=== PATIENT | male | born 1950 | race Native Hawaiian/Other Pacific Islander ===

== ENCOUNTER 2017-02-19 17:20 | Observation (INO) | payer MEDICAID ==
[~2017-02-19] VITALS: Ht 177.8 cm; Wt 83.0 kg
[2017-02-19 17:20] VITALS: BP 123/73; PULSE 92; RESP 20; TEMP 98.1; O2SAT 98
--- NOTE | 2017-02-19 17:57 | PD ---
HPI Chief Complaint: Altered Mental Status Time Seen by Provider: 17:56 Travel History International Travel<30 days: No Contact w/Intl Traveler<30days: No Traveled to known affect area: No History of Present Illness HPI 66-year-old male came to the emergency room with history of confusion since he woke up this morning at 8:30 AM. Patient and his just came from [place] 2 weeks ago. He does not speak a word of [place]. His relatives are here who are doing some translation and giving history. Patient appears to be confused. I've been told by the family members that he's having hard time recognizing people and place. He also said that he was dizzy. His vital signs are stable. Patient has not complained of any pain. The family members were here with him do not know much about his medical history. He does take high blood pressure medication. He did not have any syncopal episode today. He has been able to ambulate okay. [facility] Past Medical History Narrative Medical List of his past medical, surgical, social and family history is reviewed from the nursing note. Social History Tobacco Use: No Allergies-Medications (Allergen,Severity, Reaction): Coded Allergies: No Known Allergies (Unverified , 02/19/17) Comments No known drug allergies. Reported Meds & Prescriptions Reported Meds & Active Scripts Active Narrative Medication Awaiting for the nurse to do the medical reconciliation. Review of Systems ROS Limitations: Altered Mental Status, Poor Historian Except as stated in HPI: all other systems reviewed are Neg Neurologic: Positive: Dizziness Physical Exam Narrative GENERAL: Awake but confused, extremely poor communication due to language barrier but also sparsely verbal SKIN: Focused skin assessment warm/dry. HEAD: Atraumatic. Normocephalic. EYES: Pupils equal and round. No scleral icterus. No injection or drainage. ENT: No nasal bleeding or discharge. Mucous membranes pink and moist. NECK: Trachea midline. No JVD. CARDIOVASCULAR: Regular rate and rhythm. No murmur appreciated. RESPIRATORY: No accessory muscle use. Clear to auscultation. Breath sounds equal bilaterally. GASTROINTESTINAL: Abdomen soft, non-tender, nondistended. Hepatic and splenic margins not palpable. MUSCULOSKELETAL: No obvious deformities. No clubbing. No cyanosis. No edema. NEUROLOGICAL: Awake but confused. No obvious cranial nerve deficits. Motor grossly within normal limits. Unable to comprehend speech due to language barrier PSYCHIATRIC: Appropriate mood and affect; insight and judgment normal. Data Data Last Documented VS Orders Orders Electrocardiogram (02/19/17 17:37) Ammonia (02/19/17 17:37) Complete Blood Count With Diff (02/19/17 17:37) Comprehensive Metabolic Panel (02/19/17 17:37) Prothrombin Time / Inr (Pt) (02/19/17 17:37) Act Partial Throm Time (Ptt) (02/19/17 17:37) Thyroid Stimulating Hormone (02/19/17 17:37) Urinalysis - C+S If Indicated (02/19/17 17:37) Chest, Pa & Lat (02/19/17 17:37) Ct Brain W/O Iv Contrast(Rout) (02/19/17 17:37) Consult Neurology (02/19/17 ) Sodium Chlor 0.9% 1000 Ml Inj (Ns 1000 M (02/19/17 20:45) Head Of Bed (02/19/17 20:38) Mra Brain W/O Contrast (Cow) (02/20/17 07:00) Mra Carotids W Contrast (02/20/17 07:00) Admit Order (Ed Use Only) (02/19/17 20:56) Place In Observation (02/19/17 ) Vital Signs (Adult) Q2HX12,Q4H (02/19/17 20:55) Nih Stroke Scale - Nihss .Daily (02/19/17 20:55) Neuro Checks Q2HX12,Q4H (02/19/17 20:55) Notify Dr: Other (02/19/17 20:55) Remove Urinary Catheter .ONCE (02/19/17 20:55) Ot Request For Service (02/19/17 20:55) Pt Request For Service (02/19/17 20:55) Speech Therapy Consult-Eval/Tx (02/19/17 20:55) Case Management Consult (02/19/17 ) Activity Oob Ad Yenni (02/19/17 20:55) Nursing Bedside Swallow Assess .ONCE (02/19/17 20:55) Scd Bilateral/Knee High DAKSHA.QSHIFT (02/19/17 20:55) Diet Npo (02/20/17 Breakfast) Hemoglobin (Hgb) A1c (02/19/17 20:55) Lipid Profile (02/20/17 06:00) ^ Hold Medication (02/19/17 20:55) Sodium Chloride 0.9% Flush (Ns Flush) (02/19/17 21:00) Sodium Chloride 0.9% Flush (Ns Flush) (02/19/17 21:00) Bedside Glucose DAKSHA.CSUGAR (02/19/17 20:55) University Counselor / Telemetry DAKSHA.Q8H (02/19/17 20:55) Consult Stroke Navigator (02/19/17 ) Echo 2d Comp With Doppler (02/21/17 ) Labs Laboratory Tests Test 02/19/17 18:05 02/19/17 18:55 02/19/17 19:21 White Blood Count 6.6 TH/MM3 Red Blood Count 4.37 MIL/MM3 Hemoglobin 12.8 GM/DL Hematocrit 37.9 % Mean Corpuscular Volume 86.6 FL Mean Corpuscular Hemoglobin 29.2 PG Mean Corpuscular Hemoglobin Concent 33.7 % Red Cell Distribution Width 12.9 % Platelet Count 202 TH/MM3 Mean Platelet Volume 7.0 FL Neutrophils (%) (Auto) 66.3 % Lymphocytes (%) (Auto) 20.8 % Monocytes (%) (Auto) 11.9 % Eosinophils (%) (Auto) 0.6 % Basophils (%) (Auto) 0.4 % Neutrophils # (Auto) 4.4 TH/MM3 Lymphocytes # (Auto) 1.4 TH/MM3 Monocytes # (Auto) 0.8 TH/MM3 Eosinophils # (Auto) 0.0 TH/MM3 Basophils # (Auto) 0.0 TH/MM3 CBC Comment DIFF FINAL Differential Comment Prothrombin Time 12.0 SEC Prothromb Time International Ratio 1.1 RATIO Activated Partial Thromboplast Time 25.0 SEC Blood Urea Nitrogen 25 MG/DL Creatinine 1.01 MG/DL Random Glucose 109 MG/DL Total Protein 6.6 GM/DL Albumin 3.4 GM/DL Calcium Level 8.0 MG/DL Alkaline Phosphatase 76 U/L Aspartate Amino Transf (AST/SGOT) 14 U/L Alanine Aminotransferase (ALT/SGPT) 28 U/L Total Bilirubin 0.3 MG/DL Sodium Level 143 MEQ/L Potassium Level 3.8 MEQ/L Chloride Level 108 MEQ/L Carbon Dioxide Level 28.3 MEQ/L Anion Gap 7 MEQ/L Estimat Glomerular Filtration Rate 74 ML/MIN Thyroid Stimulating Hormone 3rd Gen 1.080 uIU/ML Ammonia 36 MCMOL/L Urine Color YELLOW Urine Turbidity CLEAR Urine pH 5.5 Urine Specific [place] 1.027 Urine Protein NEG mg/dL Urine Glucose (UA) NEG mg/dL Urine Ketones NEG mg/dL Urine Occult Blood NEG Urine Nitrite NEG Urine Bilirubin NEG Urine Urobilinogen 2.0 MG/DL Urine Leukocyte Esterase NEG Urine RBC 1 /hpf Urine WBC 1 /hpf Urine Mucus FEW /lpf Microscopic Urinalysis Comment CATH-CULT NOT IND MDM Medical Decision Making Medical Screen Exam Complete: Yes Emergency Medical Condition: Yes Medical Record Reviewed: Yes Interpretation(s) Twelve-lead EKG was reviewed by me. Normal sinus rhythm, normal axis, nonspecific ST-T wave changes. Heart rate of 83 bpm. Differential Diagnosis TIA, CVA, transient global amnesia, metabolic encephalopathy Narrative Course 6:45 PM awaiting for the blood test results and the CAT scan to be done and resulted. Case will be signed over to the oncoming ER physician. Procedures EKG Prior to Arrival: No Scripts Quetiapine (Seroquel) 50 Mg Tab 50 MG PO HS Y for AGITATION, #30 TAB 0 Refills Prov: Celia Hong PA-C 02/22/17 Memantine (Namenda) 5 Mg Tab 5 MG PO DAILY for dementia, #30 TAB 1 Refill Prov: Celia Hong PA-C 02/22/17 Ranjith Junior MD Feb 19, 2017 17:57
[2017-02-19 18:29] VITALS: BP 118/73; PULSE 81; RESP 22; O2SAT 98
--- NOTE | 2017-02-19 18:32 | RADRPT ---
EXAM DATE/TIME: 02/19/2017 17:51 [facility] COMPARISON: No previous studies available for comparison. INDICATIONS : Altered mental status MEDICAL HISTORY : None. SURGICAL HISTORY : None. ENCOUNTER: Initial ACUITY: 1 day PAIN SCORE: 0/10 LOCATION: chest FINDINGS: PA and lateral views of the chest demonstrate the lungs to be symmetrically aerated with minimal biap ical scarring. A rather dense the well-circumscribed convex structure adjacent to the anterior first rib and projecting over the posterior fifth rib on the right is probably associated with one of these 2 bony structures mild degenerative spurring of the dorsal spine which is otherwise intact. Heart si ze is normal. CONCLUSION: 1. Mild biapical scarring. Lungs are otherwise clear. 2. Dense convex osseous structure projecting over the right upper chest probably represents some spur ring at the costochondral junction of the right first anterior rib. 3. No acute cardiopulmonary process Juan Khoury MD on February 19, 2017 at 18:26 Board Certified Radiologist. This report was verified electronically.
[2017-02-19] MEDS ORDERED: [UNRECOGNIZED DRUG - CODE] PO (18:44)
--- NOTE | 2017-02-19 19:10 | RADRPT ---
EXAM DATE/TIME: 02/19/2017 18:32 [facility] COMPARISON: No previous studies available for comparison. INDICATIONS : Altered mental status with confusion. RADIATION DOSE: 56.35 CTDIvol (mGy) ; Patient motion MEDICAL HISTORY : None SURGICAL HISTORY : None. ENCOUNTER: Initial ACUITY: 1 day PAIN SCALE: Non-responsive LOCATION: Bilateral cranial TECHNIQUE: Multiple contiguous axial images were obtained of the head. Using automated exposure control and adj ustment of the mA and/or kV according to patient size, radiation dose was kept as low as reasonably a chievable to obtain optimal diagnostic quality images. DICOM format image data is available electro nically for review and comparison. FINDINGS: CEREBRUM: The ventricles are normal for age. Extensive periventricular and deep white matter tract areas of di minished attenuation are characteristic of severe small vessel ischemic demyelination. No evidence of midline shift, mass lesion, hemorrhage or acute infarction. No extra-axial fluid collections are se en. POSTERIOR FOSSA: The cerebellum and brainstem are intact. The 4th ventricle is midline. The cerebellopontine angle i s unremarkable. EXTRACRANIAL: The visualized portion of the orbits is intact. SKULL: The calvaria is intact. No evidence of skull fracture. CONCLUSION: 1. 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 2. Nothing acute. Juan Khoury MD on February 19, 2017 at 19:07 Board Certified Radiologist. This report was verified electronically.
[2017-02-19 19:29] LABS: AUTOMATED NEUTROPHIL # 4.4 TH/MM3 (1.8-7.7); BASOPHIL % 0.4 % (0.0-2.0); EOSINOPHIL % 0.6 % (0.0-4.0); HEMATOCRIT 37.9 % (39.0-51.0); HEMO FLAGS DIFF FINAL; LYMPH % 20.8 % (9.0-44.0); LYMPHOCYTE # 1.4 TH/MM3 (1.0-4.8); MEAN CELL VOLUME 86.6 FL (80.0-100.0); MEAN CORPUSCULAR HEMOGLOBIN 29.2 PG (27.0-34.0); MEAN CORPUSCULAR HGB CONC 33.7 % (32.0-36.0); MONO % 11.9 % (0.0-8.0); NEUT % 66.3 % (16.0-70.0); PLATELET COUNT 202 TH/MM3 (150-450); RED BLOOD COUNT 4.37 MIL/MM3 (4.50-5.90); RED CELL DISTRIBUTION WIDTH 12.9 % (11.6-17.2); WHITE BLOOD COUNT 6.6 TH/MM3 (4.0-11.0)
[2017-02-19 19:33] LABS: INTERNATIONAL NORMALIZED RATIO 1.1 RATIO
[2017-02-19 19:43] LABS: BLOOD, URINE NEG (NEG); GLUCOSE,URINE NEG (NEG); KETONE, URINE NEG (NEG); MUCUS URINE FEW /lpf (OCC); NITRITE,URINE NEG (NEG); PH, URINE 5.5 (5.0-8.5); URINE COLOR YELLOW (YELLW/STRAW)
[2017-02-19 19:45] LABS: COMMENT (UR) CATH-CULT NOT IND; CULTURE IF INDICATED CATH CULTURE NOT IND
[2017-02-19 19:49] LABS: ANION GAP 7 MEQ/L (5-15); AST (GOT) 14 U/L (15-37); BICARBONATE 28.3 MEQ/L (21.0-32.0); BLOOD UREA NITROGEN 25 MG/DL (7-18); CHLORIDE 108 MEQ/L (98-107); GLOMERULAR FILTRATION RATE 74 ML/MIN (>89); POTASSIUM 3.8 MEQ/L (3.5-5.1); SODIUM (NA) 143 MEQ/L (136-145)
--- NOTE | 2017-02-19 19:50 | PD ---
Physical Exam Narrative Patient was seen in the ED physician and signed out to me. Data Data Last Documented VS Vital Signs Date Time Temp Pulse Resp B/P (MAP) Pulse Ox O2 Delivery O2 Flow Rate FiO2 02/19/17 18:29 81 22 118/73 (88) 98 Room Air 02/19/17 17:20 98.1 Orders Orders Electrocardiogram (02/19/17 17:37) Ammonia (02/19/17 17:37) Complete Blood Count With Diff (02/19/17 17:37) Comprehensive Metabolic Panel (02/19/17 17:37) Prothrombin Time / Inr (Pt) (02/19/17 17:37) Act Partial Throm Time (Ptt) (02/19/17 17:37) Thyroid Stimulating Hormone (02/19/17 17:37) Urinalysis - C+S If Indicated (02/19/17 17:37) Chest, Pa & Lat (02/19/17 17:37) Ct Brain W/O Iv Contrast(Rout) (02/19/17 17:37) Labs Laboratory Tests Test 02/19/17 18:05 02/19/17 18:55 02/19/17 19:21 White Blood Count 6.6 TH/MM3 Red Blood Count 4.37 MIL/MM3 Hemoglobin 12.8 GM/DL Hematocrit 37.9 % Mean Corpuscular Volume 86.6 FL Mean Corpuscular Hemoglobin 29.2 PG Mean Corpuscular Hemoglobin Concent 33.7 % Red Cell Distribution Width 12.9 % Platelet Count 202 TH/MM3 Mean Platelet Volume 7.0 FL Neutrophils (%) (Auto) 66.3 % Lymphocytes (%) (Auto) 20.8 % Monocytes (%) (Auto) 11.9 % Eosinophils (%) (Auto) 0.6 % Basophils (%) (Auto) 0.4 % Neutrophils # (Auto) 4.4 TH/MM3 Lymphocytes # (Auto) 1.4 TH/MM3 Monocytes # (Auto) 0.8 TH/MM3 Eosinophils # (Auto) 0.0 TH/MM3 Basophils # (Auto) 0.0 TH/MM3 CBC Comment DIFF FINAL Differential Comment Prothrombin Time 12.0 SEC Prothromb Time International Ratio 1.1 RATIO Activated Partial Thromboplast Time 25.0 SEC Blood Urea Nitrogen 25 MG/DL Creatinine 1.01 MG/DL Random Glucose 109 MG/DL Total Protein 6.6 GM/DL Albumin 3.4 GM/DL Calcium Level 8.0 MG/DL Alkaline Phosphatase 76 U/L Aspartate Amino Transf (AST/SGOT) 14 U/L Alanine Aminotransferase (ALT/SGPT) 28 U/L Total Bilirubin 0.3 MG/DL Sodium Level 143 MEQ/L Potassium Level 3.8 MEQ/L Chloride Level 108 MEQ/L Carbon Dioxide Level 28.3 MEQ/L Anion Gap 7 MEQ/L Estimat Glomerular Filtration Rate 74 ML/MIN Thyroid Stimulating Hormone 3rd Gen 1.080 uIU/ML Ammonia 36 MCMOL/L Urine Color YELLOW Urine Turbidity CLEAR Urine pH 5.5 Urine Specific [place] 1.027 Urine Protein NEG mg/dL Urine Glucose (UA) NEG mg/dL Urine Ketones NEG mg/dL Urine Occult Blood NEG Urine Nitrite NEG Urine Bilirubin NEG Urine Urobilinogen 2.0 MG/DL Urine Leukocyte Esterase NEG Urine RBC 1 /hpf Urine WBC 1 /hpf Urine Mucus FEW /lpf Microscopic Urinalysis Comment CATH-CULT NOT IND MDM Supervised Visit with TACO: No Interpretation(s) Last Impressions Head CT 02/19/171736 Signed Impressions: Service Date/Time: Sunday, February 19, 2017 18:32 - CONCLUSION: 1. 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 2. Nothing acute. Juan Khoury MD Chest X-Ray 02/19/171736 Signed Impressions: Service Date/Time: Sunday, February 19, 2017 17:51 - CONCLUSION: 1. Mild biapical scarring. Lungs are otherwise clear. 2. Dense convex osseous structure projecting over the right upper chest probably represents some spurring at the costochondral junction of the right first anterior rib. 3. No acute cardiopulmonary process Juan Khoury MD 1949 PM. CBC within normal limits. Ammonia 36. UA is negative. 2017 p.m. BUN 25. GFR 74. CMP otherwise within normal limit. Narrative Course 66-year-old male was brought in by family member for mental confusion. Patient will male admitted for rule out TIA, CVA. Normal saline solution 100 cc an hour. O2 2 L nasal cannula. Head of bed 30. Diagnosis Primary Impression: Altered mental status Qualified Codes: R41.82 - Altered mental status, unspecified Admitting Information Admitting Physician Requests: Observation Lacho Vyas MD Feb 19, 2017 19:50
[2017-02-19 20:00] LABS: ALKALINE PHOSPHATASE 76 U/L (45-117); ALT (GPT) 28 U/L (12-78); TOTAL BILIRUBIN ADULT 0.3 MG/DL (0.2-1.0)
[2017-02-19] MEDS ORDERED: SODIUM CHLORIDE 0.9% FLUSH 10 ML FLUSH IV FLUSH PRN (21:00)
[2017-02-19] MEDS: SODIUM CHLORIDE 0.9% FLUSH 10 ML FLUSH IV FLUSH SCH (21:00)
[2017-02-19] MEDS: SODIUM CHLOR 0.9% 1000 ML INJ 1,000 ML IV SCH (21:11)
[2017-02-19 21:12] VITALS: BP 124/77; PULSE 99; RESP 18; O2SAT 99
[2017-02-19 22:20] VITALS: BP 135/75; PULSE 93; RESP 18; TEMP 98.8; O2SAT 95
[2017-02-19 23:46] VITALS: BP 129/70; PULSE 81; RESP 18; TEMP 98.8; O2SAT 98
--- NOTE | 2017-02-20 05:16 | HHI.HP ---
[facility] No Primary Care Physician Admission Diagnosis altered mental status Diagnoses: Travel History International Travel<30 Days: Yes Contact w/Intl Traveler <30 Da: Yes Name of Country Traveled to: [place] Traveled to Known Affected Are: No History of Present Illness hx from patient, his son at bedside, ER provider and review of med records son stated for past 3 days or so, pt was not looking normal, staring into space , only answering yes or no 2 weeks ago was normal , came from [facility] [place] initially was ok for about 2 days, then slowly family noticed he was not eating on his own, urinating on himself and not aware of it slow gait to family, mostly his answers also do not make sense to family no fever no nausea/ no vomting/ no syncope not diabetic but on further questioning, family does report of pt having sweats for past few days- drenched when he wakes up in am eats ok no choking decreased appetite,but also kept putting food in mouth without chewing, needed water not able to tell for urination and bowel movement- just goes straight in his pants food as well, he is not taking it by himself in hospital, pt would only answer yes or no in Portuguese, but mostly his answers do not make sense to family but he was able to walk with help from family to bathroom while in hospital Review of Systems ROS Limitations: Altered Mental Status, Poor Historian Except as stated in HPI: all other systems reviewed are Neg Past Family Social History Past Medical History htn Past Surgical History no surgeries Allergies: Coded Allergies: No Known Allergies (Unverified , 02/19/17) Family History no medical issues that son is aware of Social History never smoked never drank no drugs came here from [place] Physical Exam Vital Signs Vital Signs Date Time Temp Pulse Resp B/P (MAP) Pulse Ox O2 Delivery O2 Flow Rate FiO2 02/19/17 23:46 98.8 81 18 129/70 (89) 98 02/19/17 22:20 98.8 93 18 135/75 (95) 95 02/19/17 21:30 02/19/17 21:12 99 18 124/77 (93) 99 Nasal Cannula 2.00 02/19/17 18:29 81 22 118/73 (88) 98 Room Air 02/19/17 17:20 98.1 92 20 123/73 (90) 98 Room Air Physical Exam GENERAL: This is elderly gentleman, looking into space, flat affect, not combative, answers only yes or no, masked facies SKIN: No rashes, ecchymoses or lesions. Cool and dry. HEAD: Atraumatic. Normocephalic. No temporal or scalp tenderness. EYES:. No scleral icterus. No injection or drainage. ENT: Nose without bleeding, purulent drainage or septal hematoma.Airway patent. NECK: Trachea midline. No JVD. Supple, nontender, no meningeal signs. CARDIOVASCULAR: Regular rate and rhythm without murmurs, gallops, or rubs. RESPIRATORY: Clear to auscultation. Breath sounds equal bilaterally. No wheezes , rales, or rhonchi. GASTROINTESTINAL: Abdomen soft, non-tender, nondistended. No guarding. MUSCULOSKELETAL: Extremities without clubbing, cyanosis, or edema. No calf tenderness. NEUROLOGICAL: Awake, looks confused to family, moving all 4 limbs though extremities seems tense and almost mild contracture, full neuro exam cannot be done as pt is not following commands, no facial asymmetry or tongue deviation Normal speech. Laboratory Laboratory Tests Test 02/19/17 18:05 02/19/17 18:55 02/19/17 19:21 White Blood Count 6.6 Red Blood Count 4.37 Hemoglobin 12.8 Hematocrit 37.9 Mean Corpuscular Volume 86.6 Mean Corpuscular Hemoglobin 29.2 Mean Corpuscular Hemoglobin Concent 33.7 Red Cell Distribution Width 12.9 Platelet Count 202 Mean Platelet Volume 7.0 Neutrophils (%) (Auto) 66.3 Lymphocytes (%) (Auto) 20.8 Monocytes (%) (Auto) 11.9 Eosinophils (%) (Auto) 0.6 Basophils (%) (Auto) 0.4 Neutrophils # (Auto) 4.4 Lymphocytes # (Auto) 1.4 Monocytes # (Auto) 0.8 Eosinophils # (Auto) 0.0 Basophils # (Auto) 0.0 CBC Comment DIFF FINAL Differential Comment Prothrombin Time 12.0 Prothromb Time International Ratio 1.1 Activated Partial Thromboplast Time 25.0 Blood Urea Nitrogen 25 Creatinine 1.01 Random Glucose 109 Total Protein 6.6 Albumin 3.4 Calcium Level 8.0 Alkaline Phosphatase 76 Aspartate Amino Transf (AST/SGOT) 14 Alanine Aminotransferase (ALT/SGPT) 28 Total Bilirubin 0.3 Sodium Level 143 Potassium Level 3.8 Chloride Level 108 Carbon Dioxide Level 28.3 Anion Gap 7 Estimat Glomerular Filtration Rate 74 Thyroid Stimulating Hormone 3rd Gen 1.080 Ammonia 36 Urine Color YELLOW Urine Turbidity CLEAR Urine pH 5.5 Urine Specific [place] 1.027 Urine Protein NEG Urine Glucose (UA) NEG Urine Ketones NEG Urine Occult Blood NEG Urine Nitrite NEG Urine Bilirubin NEG Urine Urobilinogen 2.0 Urine Leukocyte Esterase NEG Urine RBC 1 Urine WBC 1 Urine Mucus FEW Microscopic Urinalysis Comment CATH-CULT NOT IND Result Diagram: 02/19/17180402/19/171804 Imaging Last [address] 02/19/171736 Signed Impressions: Service Date/Time: Sunday, February 19, 2017 18:32 - CONCLUSION: 1. 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 2. Nothing acute. Juan Khoury MD Chest X-Ray 02/19/171736 Signed Impressions: Service Date/Time: Sunday, February 19, 2017 17:51 - CONCLUSION: 1. Mild biapical scarring. Lungs are otherwise clear. 2. Dense convex osseous structure projecting over the right upper chest probably represents some spurring at the costochondral junction of the right first anterior rib. 3. No acute cardiopulmonary process Juan Khoury MD Caprini VTE Risk Assessment Caprini VTE Risk Assessment: Mod/High Risk (score >= 2) Caprini Risk Assessment Model Point Value = 1 Point Value = 2 Point Value = 3 Point Value = 5 Age 41-60 Minor surgery BMI > 25 kg/m2 Swollen legs Varicose veins or History of unexplained or recurrent spontaneous Oral contraceptives or hormone replacement Sepsis (< 1 month) Serious lung disease, including pneumonia (< 1 month) Abnormal pulmonary function Acute myocardial infarction Congestive heart failure (< 1 month) History of inflammatory bowel disease Medical patient at bed rest Age 61-74 Arthroscopic surgery Major open surgery (> 45 min) Laparoscopic surgery (> 45 min) Malignancy Confined to bed (> 72 hours) Immobilizing plaster cast Central venous access Age >= 75 History of VTE Family history of VTE Factor V Leiden Prothrombin [id number] Lupus anticoagulant Anticardiolipin antibodies Elevated serum homocysteine Heparin-induced thrombocytopenia Other congenital or acquired thrombophilia Stroke (< 1 month) Elective arthroplasty Hip, pelvis, or leg fracture Acute spinal cord injury (< 1 month) Prophylaxis Regimen Total Risk Factor Score Risk Level Prophylaxis Regimen 0-1 Low Early ambulation 2 Moderate Order ONE of the following: *Sequential Compression Device (SCD) *Heparin 5000 units SQ BID 3-4 Higher Order ONE of the following medications: *Heparin 5000 units SQ TID *Enoxaparin/Lovenox 40 mg SQ daily (WT < 150 kg, CrCl > 30 mL/min) *Enoxaparin/Lovenox 30 mg SQ daily (WT < 150 kg, CrCl > 10-29 mL/min) *Enoxaparin/Lovenox 30 mg SQ BID (WT < 150 kg, CrCl > 30 mL/min) AND/OR *Sequential Compression Device (SCD) 5 or more Highest Order ONE of the following medications: *Heparin 5000 units SQ TID (Preferred with Epidurals) *Enoxaparin/Lovenox 40 mg SQ daily (WT < 150 kg, CrCl > 30 mL/min) *Enoxaparin/Lovenox 30 mg SQ daily (WT < 150 kg, CrCl > 10-29 mL/min) *Enoxaparin/Lovenox 30 mg SQ BID (WT < 150 kg, CrCl > 30 mL/min) AND *Sequential Compression Device (SCD) Assessment and Plan Assessment and Plan Impression: ams : CVA vs seizures vs infectious toxic metabolic encephalopathy hx of htn recent travel Plan: neurocecks echo carotid mri/ mra start on empiric meningitic doses of antibiotics neuro consult eeg in am hold home antihypertensives dvt prophylaxis with scd for posisble lumbar puncture Discussed Condition With patient, son at bedside, ER physician, nursing staff Amna Mancini MD Feb 20, 2017 05:16
[2017-02-20] MEDS ORDERED: diphenhydrAMINE HCL 50 MG/ML VIAL IV PUSH ONE (05:30)
[2017-02-20 05:35] VITALS: BP 134/73; PULSE 86; RESP 17; TEMP 98.5; O2SAT 94
[2017-02-20] MEDS ORDERED: Vancomycin Consult Pharmacy 1 EA OTHER SCH (05:45)
[2017-02-20] MEDS: AMPICILLIN INJ 2,000 MG in SODIUM CHLORIDE 0.9% INJ 100 ML IV SCH ×4 (06:00→17:26)
[2017-02-20] MEDS ORDERED: VANCOMYCIN INJ 1,250 MG in SODIUM CHLOR 0.9% 250 ML INJ 250 ML IV ONE (06:30)
[2017-02-20] MEDS: SODIUM CHLOR 0.9% 1000 ML INJ 1,000 ML IV SCH ×2 (07:56→16:45)
[2017-02-20 08:20] VITALS: PULSE 61
[2017-02-20 08:25] VITALS: BP 138/88; PULSE 80; RESP 20; TEMP 97.7; O2SAT 99
[2017-02-20] MEDS: SODIUM CHLORIDE 0.9% FLUSH 10 ML FLUSH IV FLUSH SCH ×2 (09:00→21:00)
[2017-02-20] MEDS: cefTRIAXone INJ 2,000 MG in SODIUM CHLORIDE 0.9% INJ 100 ML IV SCH ×2 (09:52→22:20)
--- NOTE | 2017-02-20 10:22 | MB ---
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 He was over here for about a year and then he went back to [place] about 6 months ago. His son stayed with him during that time over here in the [facility] and he was actually quite sharp mentally and evidently about 3 months ago he began to have some progressive memory loss and he came back over here 2 weeks ago. His son noticed that he seemed very tired but he was not talking very much and then over the last several days he seemed to get a little bit agitated and little bit aggressive. SOCIAL HISTORY Not a smoker or drinker. Lives with his son now, just came over from [place] two weeks ago. FAMILY HISTORY Negative for cancer seizure or stroke. They denied any history of migraines or stroke at a young age in the family. REVIEW OF SYSTEMS No hypertension, diabetes, hypercholesterolemia, VT, CABG, cardiac arrhythmia, stent, angioplasty, A-fib, Coumadin, renal, hepatic or pulmonary disease, thyroid disease, lupus, ulcer, cancer, seizure or stroke. He has not eaten any raw meat or brains over in [place]. Over there the evidently the water is good. They do not have to worry about drinking the water. [place]. There was no sudden illness or headaches or fevers when this all started and it seemed to be progressive over several months. ALLERGIES No known drug allergies. MEDICATIONS Does not take any medications. MEDICATIONS HERE IN THE HOSPITAL He was given some vancomycin, ceftriaxone and ampicillin. PHYSICAL EXAMINATION VITAL SIGNS: Afebrile, 80, 20, 138/88. O2 sats 99%. NECK: There were no carotid bruits. HEART: Regular rhythm. I do not detect a murmur. NEUROLOGICAL EXAMINATION: Pupils are equal. Visual pizano appear full. He can count fingers. It is hard to say, however, he is not particularly cooperative. His face was hypomimetic but he moved it symmetrically. Tongue was midline. He had normal strength in upper and lower extremities bilaterally. Toes downgoing bilaterally. DTRs are trace throughout. He seemed to feel pinprick throughout. He is awake but abulic. He is awake but usually he does follow some commands from his son. He said it was 2007. MENTAL STATUS EXAMINATION: The patient does not speak Serbian so it is all through an footwear sales leader. He could not name anything or tell them what his son's name was. LABORATORY DATA CBC is normal. UA is negative. Basic metabolic profile essentially normal. Calcium 8. LFTs normal. Ammonia level 36. Albumin is 3.4. TSH is normal. Coags normal. IMAGING STUDIES CAT scan of the brain shows some mild atrophy and diffuse white matter changes. Chest x-ray essentially unremarkable. CAT scan of the brain - Severe white matter changes noted, some mild atrophy. IMPRESSION Three months of progressive dementia. Creutzfeldt-Ezra disease could be considered although there is no startle response today. PLAN 1. We will check an EEG and MRI of the brain. 2. Consider an LP, some additional blood work. 3. I will be following him with you in the hospital. 4. We will get him IUP and ambulate him. 5. May consider Infectious Disease see him depending on what we come up with as he has been living in the [facility] in case there is any encephalitis he could have had over there. However, there is no evidence by history that he actually had encephalitis. It seemed to be more of a fairly rapidly progressing dementia over the last 3 months. The CAT scan itself could be consistent with Cadasil but there is no family history for that and leukoencephalopathy or Binswanger's could be considered. MD MARGARETH Fam/JORGITO /9:32 AM /9:58 AM
[2017-02-20] MEDS ORDERED: LORazepam 2 MG TAB PO ONE ×2 (14:00→22:45)
[2017-02-20 14:36] LABS: BLOOD GAS BASE EXCESS 4.8 mmol/L (-2-2); BLOOD GAS CARBOXYHEMOGLOBIN 1.1 % (0-4); BLOOD GAS HCO3 29 mmol/L (22-26); BLOOD GAS METHEMOGLOBIN 0.5 % (0-2); BLOOD GAS O2 HGB SATURATION 91 % (90-100); BLOOD GAS OXYGEN CONTENT 16.7 Vol % (12.0-20.0); BLOOD GAS PCO2 43 mmHg (38-42); BLOOD GAS PO2 63 mmHG (61-120); BLOOD GAS TOTAL HGB 13.1 G/DL (12.0-16.0); CRITICAL VALUE NO; DRAW SITE RT RADIAL; FIO2 21 %; NUMBER OF ARTERIAL PUNCTURES 1; STAT YES; ULNAR PULSE PRESENT
--- NOTE | 2017-02-20 15:18 | RADRPT ---
EXAM DATE/TIME: 02/20/2017 12:54 [facility] COMPARISON: No previous studies available for comparison. INDICATIONS : Cerebrovascular accident. MEDICAL HISTORY : Hypertension. SURGICAL HISTORY : None. ENCOUNTER: Initial ACUITY: 1 day PAIN SCORE: 0/10 LOCATION: neck PEAK SYSTOLIC VELOCITIES (cm/sec): ICA/CCA RATIO: Right: 1.1 Left: 1.0 ICA: Right: 55 Left: 59 CCA: Right: 50 Left: 60 ECA: Right: 45 Left: 49 VERTEBRAL: Right: 43 antegrade Left: 40 antegrade Elevated flow velocities and ICA/CCA ratios have been found to correlate with increased degrees of vessel stenosis, calculated as percentage of diameter relative to a normal segment of distal ICA/CCA FINDINGS: RIGHT CAROTID: No significant stenosis is visualized. The waveforms are within normal limits. LEFT CAROTID: No significant stenosis is visualized. The waveforms are within normal limits. VERTEBRAL ARTERIES: Antegrade flow is seen in both vertebral arteries. MISCELLANEOUS: None. CONCLUSION: Unremarkable exam. Anurag Santillan MD on February 20, 2017 at 15:16 Board Certified Radiologist. This report was verified electronically.
--- NOTE | 2017-02-20 15:47 | EKG ---
Date Performed: 02/19/2017 Time Performed: 18:20:48 PTAGE: 66 years EKG: Sinus rhythm NONSPECIFIC T-WAVE ABNORMALITY BORDERLINE ECG NO PREVIOUS TRACING DOCTOR: Dave Donaldson Interpretating Date/Time 02/20/2017 15:46:57
[2017-02-20] MEDS ORDERED: GADODIAMIDE PF 287 MG/ML 20 ML VIAL (for RAD MRI) IVCONTRAST ONE (15:56)
--- NOTE | 2017-02-20 16:09 | RADRPT ---
EXAM DATE/TIME: 02/20/2017 15:10 [facility] COMPARISON: No previous studies available for comparison. INDICATIONS : Stroke. CONTRAST: 20 cc Omniscan (gadodiamide) IV MEDICAL HISTORY : None. SURGICAL HISTORY : None. ENCOUNTER: Initial ACUITY: 2 weeks PAIN SCORE: 0/10 LOCATION: Head. Percent stenosis is calculated using the diameter of the stenotic region over the diameter of the nor mal distal internal carotid artery. TECHNIQUE: Bolus infused MRA of the extracranial circulation was performed using a neurovascular coil. Post pro cessing was performed including rotating subvolume maximum intensity projections of each carotid jean-paul ry, rotating full volume maximum intensity projections of both carotid arteries, sagittal and coronal sliding thin slab reformations of each carotid artery, and left oblique sliding thin slab reformatio n through the aortic arch to include the origin of the arch branch vessels. FINDINGS: AORTIC ARCH: There is a three vessel origin of the great vessels from the aorta. No evidence of ostial narrowing. RIGHT CAROTID: The common carotid artery is intact. The carotid bulb has a normal configuration without ulceration or narrowing. The internal carotid artery lumen is smooth without stenosis. The external carotid ar terry is intact. LEFT CAROTID: The common carotid artery is intact. The carotid bulb has a normal configuration without ulceration or narrowing. The internal carotid artery lumen is smooth without stenosis. The external carotid ar terry is intact. VERTEBRALS: The vertebral arteries have a symmetric diameter. No stenotic lesions are seen. CONCLUSION: Normal examination. Sarwat Sen MD on February 20, 2017 at 16:05 Board Certified Radiologist. This report was verified electronically.
--- NOTE | 2017-02-20 16:18 | RADRPT ---
EXAM DATE/TIME: 02/20/2017 15:10 [facility] COMPARISON: MRI BRAIN W & W/O CONTRAST, February 20, 2017, 15:10. INDICATIONS : CVA. Confusion. MEDICAL HISTORY : None. SURGICAL HISTORY : None. ENCOUNTER: Initial ACUITY: 2 weeks PAIN SCORE: 0/10 LOCATION: Head. Please note a normal MRA of the brain does not entirely exclude the possibility of a small aneurysm, nor the possibility of distal intracranial vessel disease. TECHNIQUE: 3D time of flight MRA was performed. Source images, multiplanar STS MIP, and 3D volume MIP reconstru ctions were reviewed. FINDINGS: There is excellent visualization of the major intracranial arteries out to the second-order branch ve ssels. There is no evidence for aneurysm, vessel truncation or stenosis, and no evidence for vascula r malformation. CONCLUSION: Normal examination. Sarwat Sen MD on February 20, 2017 at 16:14 Board Certified Radiologist. This report was verified electronically.
[2017-02-20 16:24] VITALS: BP 130/71; PULSE 70; RESP 18; TEMP 97.5; O2SAT 100
--- NOTE | 2017-02-20 16:26 | RADRPT ---
EXAM DATE/TIME: 02/20/2017 15:10 [facility] COMPARISON: CT BRAIN W/O CONTRAST, February 19, 2017, 18:32. INDICATIONS : CVA. Confusion. CONTRAST: 20 cc Omniscan (gadodiamide) IV MEDICAL HISTORY : None. SURGICAL HISTORY : None. ENCOUNTER: Initial ACUITY: 2 weeks PAIN SCORE: 0/10 LOCATION: Head. TECHNIQUE: Multiplanar, multisequence MRI of the brain was performed both prior to and following the administrat ion of paramagnetic contrast. FINDINGS: CEREBRUM: Atrophy. The ventricles are normal for age. A small homogeneously calcified lesion is seen associated with the falx projecting towards the right. This is consistent with a tiny hemangioma. No mass effec t. No evidence of midline shift, mass lesion, hemorrhage or acute infarction. No extraaxial fluid co llections are seen. The pituitary gland and suprasellar cistern are normal in configuration. WHITE MATTER: Extensive white matter disease observed involving both cerebral hemispheres. This is confluent in nilsa ure within the periventricular white matter. POSTERIOR FOSSA: The cerebellum and brainstem are intact. The 4th ventricle is midline. The cerebellopontine angle is unremarkable. The cerebellar tonsils are normal in position. DIFFUSION IMAGING: No focal areas of restricted diffusion are seen. No evidence of acute infarction. EXTRACRANIAL: The visualized portions of the orbits and paranasal sinuses are unremarkable. POST-CONTRAST: No abnormal areas of parenchymal or dural enhancement. No evidence of blood-brain barrier breakdown. CONCLUSION: 1. No acute intracranial abnormality. 2. Atrophy and chronic small vessel ischemic change. 3. Small meningioma associated with the falx. Dion Blanton Jr., MD on February 20, 2017 at 16:20 Board Certified Radiologist. This report was verified electronically.
[2017-02-20 17:00] LABS: HEMOGLOBIN A1a 1.3 %; HEMOGLOBIN A1b 1.8 %; HEMOGLOBIN Ao 85.1 %; HEMOGLOBIN LA1C 1.9 %; HEMOGLOBIN P3 3.7 %
[2017-02-20 20:15] VITALS: BP 115/76; PULSE 78; RESP 17; TEMP 97.6; O2SAT 90
--- NOTE | 2017-02-20 22:08 | MG ---
cc: SANDY CALHOUN MD Lab No: [id number] Date: 01/24/17 Age: 65 Sex: M Race: DATE OF [birth year] Patient with a history of confusion, dizziness. 4-5 Hz activity with underlying 1-3 Hz delta activity occurring. Frequent eye movement artifact, left frontal myogenic artifact follow bilateral occurring at times. Posterior rhythm incremented up to 5-7 Hz. Limited driving with photic stimulation. A couple of rare frontal sharp waves. Single lead EKG showing sinus rhythm. INTERPRETATION Mild to moderate encephalopathy. Clinical correlation. Sandy Calhoun MD MG/ /9:43 PM /9:57 PM MTDD
[2017-02-20 23:04] LABS: FREE T4 1.44 NG/DL (0.76-1.46); HDL CHOLESTEROL 37.6 MG/DL (40.0-60.0); LDL CHOLESTEROL 63 MG/DL (0-99); TOTAL PROTEIN SPE 6.7 GM/DL (6.0-7.6)
[2017-02-20] MEDS: VANCOMYCIN INJ 1,500 MG in SODIUM CHLORID 0.9% 500 ML INJ 500 ML IV SCH (23:26)
[2017-02-21] VITALS (9 sets, daily range): BP systolic 97–144; BP diastolic 52–84; PULSE 68–83; RESP 16–20; TEMP 96.4–98.4; O2SAT 94–98
[2017-02-21 01:37] LABS: RHEUMATOID FACTOR TRIGGER LESS THAN 10.0 IU/ML (0.0-14.9)
[2017-02-21] MEDS: AMPICILLIN INJ 2,000 MG in SODIUM CHLORIDE 0.9% INJ 100 ML IV SCH ×6 (02:46→19:47)
[2017-02-21] MEDS: SODIUM CHLOR 0.9% 1000 ML INJ 1,000 ML IV SCH ×2 (04:52→12:45)
--- NOTE | 2017-02-21 08:29 | HHI.PR ---
Subjective Remarks nothing new overnoc Objective Vital Signs Date Time Temp Pulse Resp B/P (MAP) Pulse Ox O2 Delivery O2 Flow Rate FiO2 02/21/17 04:39 97.1 71 18 131/74 (93) 97 02/21/17 00:10 02/20/17 20:15 97.6 78 17 115/76 (89) 90 02/20/17 16:24 97.5 70 18 130/71 (90) 100 I/O 02/20/17 02/20/17 02/20/17 02/21/17 02/21/17 02/21/17 07:00 15:00 23:00 07:00 15:00 23:00 Intake Total 650 ml 100 ml Output Total 3150 ml Balance 650 ml 100 ml -3150 ml Intake IV Total 650 ml 100 ml Output Urine Total 3150 ml # Voids 3 1 # Bowel Movements 1 Result Diagram: 02/19/17180402/19/171804 Objective Remarks abulic still at times some inc tone but can relax Assessment and Plan Assessment and Plan imp mri severe wm change severe bilat temporal lobe anterior atrophy labs ok so far eeg slow but no pleds mra x2 nl will do LP and check 14-3-3 protein but this does not look like mad cow on mri nor eeg could dc tomorrow could try rx with namenda in future will start now for a degenerative dementia Jasper Victoria MD Feb 21, 2017 08:29
[2017-02-21] MEDS: SODIUM CHLORIDE 0.9% FLUSH 10 ML FLUSH IV FLUSH SCH ×2 (08:30→21:00)
[2017-02-21] MEDS ORDERED: MEMANTINE HCL 5 MG TAB PO ONE (08:30)
[2017-02-21] MEDS: cefTRIAXone INJ 2,000 MG in SODIUM CHLORIDE 0.9% INJ 100 ML IV SCH ×3 (08:45→20:00)
--- NOTE | 2017-02-21 10:19 | PD.RAD ---
Post Procedure Progress Note Pre Procedure Diagnosis: (1) Altered mental status Post Procedure Diagnosis: (1) Altered mental status Procedure Date: Feb 21, 2017 Supervising Radiologist: Tristan Bravo Estimated blood loss: none Anesthesia: Local Plan of Activity Patient to Unit: Nursing Unit Patient Condition: Poor Additional Comments: LP completed. Single puncture at L4 28cc of clear CSF removed. Full report to follow See PACS Report for procedural detail/treatment Tristan Bravo MD Feb 21, 2017 10:19
[2017-02-21 11:29] LABS: ANA SCREEN NEG (NEG)
[2017-02-21 11:34] LABS: GROSS BLOOD TUBE #1 0 (0); GROSS BLOOD TUBE #2 0 (0); SUPERNATE COLOR TUBE #1 CLEAR (CLEAR); SUPERNATE COLOR TUBE #2 CLEAR (CLEAR)
[2017-02-21 11:35] LABS: CSF LYMPHOCYTES 100 %; CSF NEUTROPHILS 0 %; GROSS BLOOD TUBE #3 0 (0); GROSS BLOOD TUBE #4 0 (0); SUPERNATE COLOR TUBE #3 CLEAR (CLEAR); SUPERNATE COLOR TUBE #4 CLEAR (CLEAR); VOLUME TUBE # 4 8.5 ML; WBC TUBE #4 3 /MM3 (0-10)
[2017-02-21 11:37] LABS: CSF LYMPHOCYTES 0 %; CSF NEUTROPHILS 0 %; GROSS BLOOD TUBE #4 0 (0); SUPERNATE COLOR TUBE #4 CLEAR (CLEAR); VOLUME TUBE # 4 8.5 ML; WBC TUBE #4 0 /MM3 (0-10)
--- NOTE | 2017-02-21 11:44 | RADRPT ---
EXAM DATE/TIME: 02/21/2017 11:10 [facility] COMPARISON: No previous studies available for comparison. INDICATIONS : Patient presents with altered mental status in need of lumbar puncture to rule out encephalitis. MEDICAL HISTORY : HTN SURGICAL HISTORY : N/A ENCOUNTER: Initial ACUITY: 3 days PAIN SCORE: Nonresponsive. LOCATION: N/A LUMBAR PUNCTURE TIME: 10:04 hours FLUORO TIME: 0.51 minutes IMAGE SERIES: 0 ACCESS LEVEL: L4-5 FLUID: 28 cc of clear CSF was collected and sent to the laboratory for analysis. PROCEDURE : 1. Fluoroscopic guided lumbar puncture. The risks, benefits and alternatives to the procedure were explained and verbal and written consent w as obtained. The site was prepped in sterile fashion. Full sterile technique was used, including ca p, mask, sterile gloves and gown and a large sterile sheet. Hand hygiene and 2% chlorhexidine and/or betadine/alcohol prep was utilized per protocol for cutaneous antisepsis. The skin and subcutaneous tissues were infiltrated with local anesthetic solution. With fluoroscopic guidance the lumbar thecal sac was punctured at the level above. The fluid describ ed above was removed without difficulty. The patient tolerated the procedure well and there were no complications. CONCLUSION: Uncomplicated fluoroscopically guided lumbar puncture. Tristan Bravo MD on February 21, 2017 at 11:41 Board Certified Radiologist. This report was verified electronically.
--- NOTE | 2017-02-21 12:16 | HHI.PR ---
Subjective Remarks Written by Hannah Parks, acting as scribe for Dr. Vega on 02/21/17 at 12: 16. Follow-up on patient with altered mental status. Patient confused. Extensive family at the bedside. Family reports new memory problems starting about 2 months ago with increasing confusion over the past several days. Also reports new aggressive behavior. Recent travel to [place]. Family denies any recent illness or ill contacts. Denies any family history of dementia. Patient not on any medications at home. No hx of tobacco or alcohol use. Patient is eating. 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 Objective Vitals Vital Signs Date Time Temp Pulse Resp B/P (MAP) Pulse Ox O2 Delivery O2 Flow Rate FiO2 02/21/17 08:41 98.2 68 20 130/84 (99) 96 02/21/17 04:39 97.1 71 18 131/74 (93) 97 02/21/17 00:10 02/20/17 20:15 97.6 78 17 115/76 (89) 90 02/20/17 16:24 97.5 70 18 130/71 (90) 100 I/O 02/20/17 02/20/17 02/20/17 02/21/17 02/21/17 02/21/17 07:00 15:00 23:00 07:00 15:00 23:00 Intake Total 650 ml 100 ml 100 ml Output Total 3150 ml Balance 650 ml 100 ml -3150 ml 100 ml Intake IV Total 650 ml 100 ml 100 ml Output Urine Total 3150 ml # Voids 3 1 # Bowel Movements 1 Result Diagram: 02/19/17 1805 02/21/17 0849 Imaging Last Impressions Lumbar Puncture Fluoroscopy 02/21/17 0000 Signed Impressions: Service Date/Time: Tuesday, February 21, 2017 11:10 - CONCLUSION: Uncomplicated fluoroscopically guided lumbar puncture. Tristan Bravo MD Carotid Artery Ultrasound 02/20/1737 Signed Impressions: Service Date/Time: January 12:54 - CONCLUSION: Unremarkable exam. Anurag Santillan MD Brain MRI 02/20/17936 Signed Impressions: Service Date/Time: January 15:10 - CONCLUSION: 1. No acute intracranial abnormality. 2. Atrophy and chronic small vessel ischemic change. 3. Small meningioma associated with the falx. Dion Blanton Jr., MD Neck Magnetic Resonance Angiography 02/20/17 07 Signed Impressions: Service Date/Time: January 15:10 - CONCLUSION: Normal examination. Sarwat Sen MD Head Magnetic Resonance Angiography 02/20/17699 Signed Impressions: Service Date/Time: January 15:10 - CONCLUSION: Normal examination. Sarwat Sen MD Head CT 02/19/171736 Signed Impressions: Service Date/Time: Sunday, February 19, 2017 18:32 - CONCLUSION: 1. 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 2. Nothing acute. Juan Khoury MD Chest X-Ray 02/19/171736 Signed Impressions: Service Date/Time: Sunday, February 19, 2017 17:51 - CONCLUSION: 1. Mild biapical scarring. Lungs are otherwise clear. 2. Dense convex osseous structure projecting over the right upper chest probably represents some spurring at the costochondral junction of the right first anterior rib. 3. No acute cardiopulmonary process Juan Khoury MD Objective Remarks GENERAL: This is elderly gentleman, looking into space, flat affect, not combative, masked facies. Awake. Extensive family at the bedside. SKIN: Cool and dry. HEAD: Atraumatic. Normocephalic. EYES:. EOMI. No scleral icterus. No injection or drainage. ENT: Nose without bleeding or purulent drainage. Airway patent. MMM. NECK: Trachea midline. CARDIOVASCULAR: Regular rate and rhythm without murmurs, gallops, or rubs. RESPIRATORY: Clear to auscultation. Breath sounds equal bilaterally. No wheezes , rales, or rhonchi. GASTROINTESTINAL: Abdomen soft, non-tender, nondistended. No guarding. GENITOURINARY: Nix in place with clear urine in bag. MUSCULOSKELETAL: Extremities without clubbing, cyanosis, or edema. No calf tenderness. NEUROLOGICAL: Awake, looks confused to family, moving all 4 limbs though extremities seems tense and almost mild contracture. Follows most commands. Normal speech but minimal verbalization. Medications and IVs Current Medications Medications (Trade) Dose Ordered Sig/Monica Route Start Time Stop Time Status Last Admin Sodium Chloride 1,000 ml @ 100 mls/hr Q10H IV 02/19/17 20:45 02/21/17 04:52 (NS Flush) 2 ml BID IV FLUSH 02/19/17 21:00 (NS Flush) 2 ml UNSCH PRN IV FLUSH 02/19/17 21:00 02/20/17 14:18 Ceftriaxone Sodium 2000 mg/ Sodium Chloride 100 ml @ 200 mls/hr Q12H IV 02/20/17 08:00 02/21/17 08:55 Pharmacy Profile Note 0 ml @ 0 mls/hr UNSCH OTHER 02/20/17 05:45 Ampicillin Sodium 2000 mg/Sodium Chloride 100 ml @ 400 mls/hr Q4H IV 02/20/17 06:00 02/21/17 12:31 Vancomycin HCl 1500 mg/Sodium Chloride 515 ml @ 250 mls/hr Q12H IV 02/20/17 21:00 02/21/17 12:50 Miscellaneous Information SPECIFIC LAB TO BE DRAWN:VANCOMYCIN TROUGH DATE TO... ONCE ONCE .XX 02/22/17 08:45 02/22/17 08:46 A/P Problem List: (1) Dementia ICD Code: F03.90 - Unspecified dementia without behavioral disturbance Assessment and Plan 66yo male without any significant past medical history who presents with progressive altered mental status. AMS/Encephalopathy - suspect dementia, rapidly progressing - recent hx of travel - Neuro following, appreciate recommendations. CT of the head shows severe periventricular and deep white matter tracts small vessel ischemic demyelination. MRI showing no acute intracranial abnormality, chronic small vessel ischemic change. MRA Head and Neck unremarkable. EEG showing mild to moderate encephalopathy. Carotid ultrasound unremarkable. - CXR shows no acute cardiopulmonary process - patient has no leukocytosis, he is afebrile. Vital signs stable. - started on IV abx empirically for meningitis. Continue. - ammonia 36 - UA unremarkable - RPR nonreactive - RF, SAYRA negative - B12 normal - HSV pending - Echo ordered/pending - s/p LP earlier today, follow up on CSF fluid studies DVT prophylaxis - patient is ambulatory This note was transcribed by fallon Parks. I, Dr. Dev Vega personally performed the history, physical exam, and medical decision making; and confirmed the accuracy of the information in the transcribed note. Authenticated by Dr. Dev Vega on 02/21/17 at 12:16. Discharge Planning Possible discharge tomorrow pending neuro clearance Hannah Parks Feb 21, 2017 12:16 Dev Vega MD Feb 21, 2017 12:17
[2017-02-21] MEDS: VANCOMYCIN INJ 1,500 MG in SODIUM CHLORID 0.9% 500 ML INJ 500 ML IV SCH (12:50)
[2017-02-21] MEDS ORDERED: QUEtiapine FUMARATE 25 MG TAB PO ONE (14:00)
--- NOTE | 2017-02-21 15:14 | ECHRPT ---
Indication: cva/tia CONCLUSIONS Normal left ventricular size and function Estimated 60% Ejection Fraction Nodpf-ne-dxka mitral valve regurgitation. There is trace tricuspid valve regurgitation. The estimated pulmonary arterial pressure is 32.7 mmHg. BP: / HR: Rhythm: MEASUREMENTS (Male / Female) Normal Values Technical Quality:Fair 2D ECHO LV Diastolic Diameter PLAX 4.2 cm 4.2 - 5.9 / 3.9 - 5.3 cm LV Systolic Diameter PLAX 3.1 cm IVS Diastolic Thickness 1.4 cm 0.6 - 1.0 / 0.6 - 0.9 cm LVPW Diastolic Thickness 0.9 cm 0.6 - 1.0 / 0.6 - 0.9 cm LV Relative Wall Thickness 0.5 RV Internal Dim ED PLAX 2.8 cm M-MODE Aortic Root Diameter MM 4.1 cm LA Systolic Diameter MM 3.2 cm LA Ao Ratio MM 0.8 AV Cusp Separation MM 2.3 cm DOPPLER Mitral E Point Velocity 57.3 cm/s Mitral A Point Velocity 78.0 cm/s Mitral E to A Ratio 0.7 LV E' Lateral Velocity 7.0 cm/s Mitral E to LV E' Lateral Ratio 8.2 LV E' Septal Velocity 6.9 cm/s Mitral E to LV E' Septal Ratio 8.3 TR Peak Velocity 238.0 cm/s TR Peak Gradient 22.7 mmHg Right Atrial Pressure 10.0 mmHg Pulmonary Artery Systolic Pressu 32.7 mmHg Right Ventricular Systolic Press 32.7 mmHg FINDINGS LEFT VENTRICLE The left ventricular systolic function is normal with an estimated ejection fraction in the range of 60-65%. Normal left ventricular size. RIGHT VENTRICLE Normal right ventricular size and systolic function. LEFT ATRIUM The left atrial size is normal. RIGHT ATRIUM The right atrial size is normal. ATRIAL SEPTUM Normal atrial septal thickness without atrial level shunting by limited color doppler interrogation. AORTA The aortic root and proximal ascending aorta are normal in size on limited imaging. MITRAL VALVE Gdril-ro-ybog mitral valve regurgitation. Structurally normal mitral valve. AORTIC VALVE Trileaflet aortic valve. No aortic valve stenosis or regurgitation. TRICUSPID VALVE There is trace tricuspid valve regurgitation. Structurally normal tricuspid valve. The estimated pulmonary arterial pressure is 32.7 mmHg. PULMONARY VALVE No pulmonary valve regurgitation or stenosis. VESSELS The inferior vena cava is normal in size. PERICARDIUM No pericardial effusion. Mustapha Guo MD (Electronically Signed) Final Date:21 February 2017 15:12
[2017-02-22] MEDS: VANCOMYCIN INJ 1,500 MG in SODIUM CHLORID 0.9% 500 ML INJ 500 ML IV SCH ×2 (00:50→10:32)
[2017-02-22 02:53] VITALS: BP 116/67; PULSE 70; RESP 17; TEMP 98.9; O2SAT 94
[2017-02-22] MEDS: SODIUM CHLOR 0.9% 1000 ML INJ 1,000 ML IV SCH ×2 (03:00→08:45)
[2017-02-22] MEDS: AMPICILLIN INJ 2,000 MG in SODIUM CHLORIDE 0.9% INJ 100 ML IV SCH ×3 (03:00→07:34)
[2017-02-22 08:40] VITALS: PULSE 90
[2017-02-22] MEDS ORDERED: PHARMACY ORDERED LAB ONE (08:45)
[2017-02-22 08:56] VITALS: BP 127/79; PULSE 90; RESP 24; TEMP 96.6; O2SAT 94
[2017-02-22] MEDS: SODIUM CHLORIDE 0.9% FLUSH 10 ML FLUSH IV FLUSH SCH (09:00)
[2017-02-22] MEDS ORDERED: MEMANTINE HCL 5 MG TAB PO SCH (10:00)
[2017-02-22] MEDS ORDERED: NAME5TAB2 PO (11:24)
[2017-02-22] MEDS ORDERED: SERO50TA PO (11:24)
--- NOTE | 2017-02-22 11:24 | HHI.DCPOC ---
Discharge Care Plan Diagnosis: (1) Dementia Goals to Promote Your Health * To prevent worsening of your condition and complications * To maintain your health at the optimal level Directions to Meet Your Goals Take your medications as prescribed Follow your dietary instruction Follow activity as directed Keep your appointments as scheduled Take your immunizations and boosters as scheduled If your symptoms worsen call your PCP, if no PCP go to Urgent Care Center or Emergency Room Smoking is Dangerous to Your Health. Avoid second hand smoke Call the 24-hour hour crisis hotline for domestic abuse at Celia Hong PA-C Feb 22, 2017 11:24
[2017-02-22 11:35] VITALS: BP 139/76; PULSE 89; RESP 20; TEMP 95.3; O2SAT 99
--- NOTE | 2017-02-22 11:57 | HHI.PR ---
Subjective Remarks Follow-up on patient with altered mental status. Patient confused. Extensive family at the bedside. Family reports new memory problems starting about 2 months ago with increasing confusion over the past several days. Also reports new aggressive behavior. Recent travel to [place]. Family denies any recent illness or ill contacts. Denies any family history of dementia. Patient not on any medications at home. No hx of tobacco or alcohol use. Patient is eating. 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 02/22/17-patient seen and examined, much more alert today; following commands. Son and daughter in laws by the bedside. Afebrile. No acute event overnight and patient was seen later on ambulated with assistance of family member Objective Vitals Vital Signs Date Time Temp Pulse Resp B/P (MAP) Pulse Ox O2 Delivery O2 Flow Rate FiO2 02/22/17 11:35 95.3 89 20 139/76 (97) 99 02/22/17 08:56 96.6 90 24 127/79 (95) 94 02/22/17 08:40 90 02/22/17 02:53 98.9 70 17 116/67 (83) 94 02/21/17 23:03 98.0 83 17 137/76 (96) 97 02/21/17 19:55 97.8 71 17 110/64 (79) 97 02/21/17 16:41 98.0 70 18 97/52 (67) 95 02/21/17 16:00 70 02/21/17 12:45 96.4 79 16 144/74 (97) 98 I/O 02/21/17 02/21/17 02/21/17 02/22/17 02/22/17 02/22/17 07:00 15:00 23:00 07:00 15:00 23:00 Intake Total 300 ml 700 ml 100 ml Output Total 3150 ml Balance -3150 ml 300 ml 700 ml 100 ml Intake IV Total 300 ml 700 ml 100 ml Output Urine Total 3150 ml # Bowel Movements 1 Result Diagram: 02/19/17 1805 02/22/17 0600 Imaging Last Impressions Lumbar Puncture Fluoroscopy 02/21/17 0000 Signed Impressions: Service Date/Time: Tuesday, February 21, 2017 11:10 - CONCLUSION: Uncomplicated fluoroscopically guided lumbar puncture. Tristan Bravo MD Carotid Artery Ultrasound 11/30/17 0937 Signed Impressions: Service Date/Time: January 12:54 - CONCLUSION: Unremarkable exam. Anurag Santillan MD Brain MRI 02/20/17936 Signed Impressions: Service Date/Time: January 15:10 - CONCLUSION: 1. No acute intracranial abnormality. 2. Atrophy and chronic small vessel ischemic change. 3. Small meningioma associated with the falx. Dion Blanton Jr., MD Neck Magnetic Resonance Angiography 02/20/17699 Signed Impressions: Service Date/Time: January 15:10 - CONCLUSION: Normal examination. Sarwat Sen MD Head Magnetic Resonance Angiography 02/20/17699 Signed Impressions: Service Date/Time: January 15:10 - CONCLUSION: Normal examination. Sarwat Sen MD Head CT 02/19/171736 Signed Impressions: Service Date/Time: Sunday, February 19, 2017 18:32 - CONCLUSION: 1. 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 2. Nothing acute. Juan Khoury MD Chest X-Ray 02/19/171736 Signed Impressions: Service Date/Time: Sunday, February 19, 2017 17:51 - CONCLUSION: 1. Mild biapical scarring. Lungs are otherwise clear. 2. Dense convex osseous structure projecting over the right upper chest probably represents some spurring at the costochondral junction of the right first anterior rib. 3. No acute cardiopulmonary process Juan Khoury MD Objective Remarks GENERAL: NAD SKIN: Warm and dry. HEAD: Normocephalic. EYES: No scleral icterus. No injection or drainage. NECK: Supple, trachea midline. No JVD or lymphadenopathy. CARDIOVASCULAR: Regular rate and rhythm without murmurs, gallops, or rubs. RESPIRATORY: Breath sounds equal bilaterally. No accessory muscle use. GASTROINTESTINAL: Abdomen soft, non-tender, nondistended. MUSCULOSKELETAL: No cyanosis, or edema. BACK: Nontender without obvious deformity. No CVA tenderness. A/P Problem List: (1) Dementia ICD Code: F03.90 - Unspecified dementia without behavioral disturbance Assessment and Plan 66yo male without any significant past medical history who presents with progressive altered mental status. AMS/Encephalopathy - suspect dementia, rapidly progressing - recent hx of travel - Neuro following, appreciate recommendations. CT of the head shows severe periventricular and deep white matter tracts small vessel ischemic demyelination. MRI showing no acute intracranial abnormality, chronic small vessel ischemic change. MRA Head and Neck unremarkable. EEG showing mild to moderate encephalopathy. Carotid ultrasound unremarkable. - CXR shows no acute cardiopulmonary process - patient has no leukocytosis, he is afebrile. Vital signs stable. - DC all prophylactic antibiotics including ampicillin, Rocephin, vancomycin for suspected meningitis - ammonia 36 - UA unremarkable - RPR nonreactive - RF, SAYRA negative - B12 normal - HSV pending - Echo EF 60% - s/p LP earlier today, follow up on CSF fluid studies DVT prophylaxis - patient is ambulatory Discharge Planning Discharge patient to home Condition on discharge: Improved Regular Diet as tolerated Ad Yenni activity Rx written:See EMR Follow-up with primary care physician in 1 week Neurology in 1-2 weeks Dev Vega MD Feb 22, 2017 11:57
[2017-02-22 14:16] LABS: HSV 1,PCR Negative (Negative)
[2017-02-24 10:31] LABS: CSF CRYPTOCOCCUS AG CONF ND (NOT DETECTD)
[2017-02-24 11:22] LABS: ALBUMIN SPE 4.17 GM/DL (3.50-5.00); ALPHA 2 GLOBULIN 0.76 GM/DL (0.22-1.00); BETA GLOBULINS (SPE) 0.86 GM/DL (0.53-1.03)
[2017-02-24 13:52] LABS: VITAMIN B6 3.1 ng/mL (2.1-21.7)
[2017-02-24 19:51] LABS: CALIFORNIA ENCEPH AB IGG <1:4 (<1:4); CALIFORNIA ENCEPH AB IGM <1:4 (<1:4); EAST EQUINE ENCEPH AB IGG <1:4 (<1:4); EAST EQUINE ENCEPH AB IGM <1:4 (<1:4); ST LOUIS ENCEPH AB IGG <1:4 (<1:4); ST LOUIS ENCEPH AB IGM <1:4 (<1:4)
== END 2017-02-22 13:00 | disposition home or self-care (01) ==
LOC: NEPE 17:20 → NEDA 20:57 → NEPGCP 22:00
PROVIDERS: ADMIT Hospitalist; ATTEND Hospitalist
DX: G92 Toxic encephalopathy (principal); I10 Essential (primary) hypertension; R63.0 Anorexia; R41.82 Altered mental status, unspecified; F03.90 Unspecified dementia, unspecified severity, without behavioral disturbance, psychotic disturbance, mood disturbance, and anxiety; R42 Dizziness and giddiness; D32.9 Benign neoplasm of meninges, unspecified; Z79.899 Other long term (current) drug therapy
CPT/HCPCS: 36600; 62270; 70450; 70544; 70548; 70553; 71020; 77003; 80053; 80061; 80202; 81001; 82140; 82565; 82607; 82746; 82805; 82945; 82948; 83036; 84157; 84165; 84207; 84425; 84439; 84443; 85025; 85610; 85652; 85730; 86038; 86140; 86403; 86430; 86592; 86651; 86652; 86653; 86654; 87015; 87070; 87102; 87116; 87205; 87206; 87497; 87529; 88108; 89051; 93005; 93306; 93880; 95819; 96125; 96361; 96365; 96366; 96367; 96368; 96375; 97110; 97116; 97162; 97166; 99285; A9579; G0378; G8987; G8988; G9168; G9169; G9170; J0290; J0696; J1200; J3370; J7030; J7040; J7050